=== PATIENT | male | born 1985 | race Caucasian/White ===

== ENCOUNTER 2023-12-15 13:35 | Inpatient (IN) | payer MEDICARE, OTHER ==
[~2023-12-15] VITALS: Ht 167.6 cm; Wt 98.0 kg
[2023-12-15] MEDS ORDERED: HALOPERIDOL LACTATE 5 MG/ML VIAL IM ONE (14:30)
[2023-12-15 14:44] LABS: BASOPHILS % (AUTO) 0.5 % (0.0-2.0); EOSINOPHILS % (AUTO) 0.9 % (1.0-6.0); HEMATOCRIT 46.9 % (41-53); HEMOGLOBIN 15.7 g/dL (13.5-17.5); LYMPHOCYTES # (AUTO) 1.3 K/uL (1.0-4.8); LYMPHOCYTES % (AUTO) 11.2 % (22.0-44.0); MEAN CORPUSCULAR HEMOGLOBIN 27.9 pg (26.0-34.0); MEAN CORPUSCULAR HGB CONC 33.4 G/dL (31.0-37.0); MEAN CORPUSCULAR VOLUME 84 fL (80-100); MONOCYTES # (AUTO) 0.4 K/uL (0.1-1.0); MONOCYTES % (AUTO) 3.5 % (2.0-9.0); NEUTROPHILS % (AUTO) 83.9 % (40.0-70.0); PLATELET COUNT (AUTO) 296 K/uL (150-450); RED BLOOD CELL COUNT(AUTO) 5.61 MIL/uL (4.50-5.90); RED CELL DISTRIBUTION WIDTH 14.1 % (11.5-14.5); WHITE BLOOD COUNT (AUTO) 11.9 K/uL (4.5-11.0)
[2023-12-15] MEDS ORDERED: ZOLPIDEM TARTRATE 10 MG TABLET PO PRN (14:45)
[2023-12-15 14:55] LABS: ANION GAP 13 mmol/L (8-16); CALCIUM, TOTAL 8.9 mg/dL (8.8-10.5); CARBON DIOXIDE 24 mmol/L (22-29); CHLORIDE 105 mmol/L (98-107); CREATININE 0.91 mg/dL (0.60-1.30); GLOMERULAR FILTR. RATE CALC > 60 mL/min (>60); GLUCOSE,RANDOM 102 mg/dL (70-110); POTASSIUM 3.7 mmol/L (3.5-5.1); SODIUM SERUM 142 mmol/L (136-145); UREA NITROGEN, BLOOD 9 mg/dL (7-18)
[2023-12-15 14:57] LABS: ALCOHOL, BLOOD (SERUM) 122 mg/dL (0-10)
[2023-12-15] MEDS: HALOPERIDOL LACTATE 5 MG/ML VIAL IM ONE (15:07)
[2023-12-15] MEDS: LORazepam 2 MG/ML VIAL IM ONE (15:08)
[2023-12-15] MEDS: DiphenhydrAMINE HCL 50 MG/ML VIAL IM ONE (15:08)
[2023-12-15 15:14] LABS: APPEARANCE,URINE CLEAR (CLEAR); BILIRUBIN,URINE NEGATIVE (NEGATIVE); COLOR,URINE LIGHT YELLOW (YELLOW); GLUCOSE, URINE (UA) NEGATIVE (NEGATIVE); KETONES,URINE NEGATIVE (NEGATIVE); LEUKOCYTE ESTERASE ,URINE NEGATIVE (NEGATIVE); NITRATE,URINE NEGATIVE (NEGATIVE); OCCULT BLOOD,URINE NEGATIVE (NEGATIVE); PH,URINE 6.5 (5.0-8.0); PROTEIN,URINE 30-70 mg/dL (NEGATIVE); SPECIFIC GRAVITIY, URINE 1.011 (1.003-1.030); UROBILINOGEN,URINE <=1.0 mg/dL (<=1.0)
[2023-12-15 15:19] LABS: PH,URINE DRUG SCREEN 6.5 (5.0-8.0)
[2023-12-15 15:23] LABS: ALCOHOL, URINE DRUG SCREEN POSITIVE (NEGATIVE); AMPHET/METH SCREEN,URINE NEGATIVE (NEGATIVE); BARBITURATE SCREEN, URINE NEGATIVE (NEGATIVE); BENZODIAZEPINES SCREEN,URINE NEGATIVE (NEGATIVE); CANNABINOID SCREEN,URINE POSITIVE (NEGATIVE); COCAINE SCREEN,URINE NEGATIVE (NEGATIVE); METHADONE SCREEN, URINE NEGATIVE (NEGATIVE); OPIATE SCREEN,URINE NEGATIVE (NEGATIVE); PHENCYCLIDINE SCREEN,URINE NEGATIVE (NEGATIVE)
[2023-12-15] MEDS ORDERED: KETAMINE HCL 50 MG/ML 10 ML VIAL ONE (15:23)
[2023-12-15] MEDS: KETAMINE HCL 50 MG/ML 10 ML VIAL IM ONE (15:30)
[2023-12-15 16:56] LABS: COVID AG,FIA SOURCE NASAL SWAB
[2023-12-15 17:20] LABS: SARS-COV2 (COVID) ANTIGEN,FIA Negative (Negative)
[2023-12-15 18:07] VITALS: O2SAT 98
[2023-12-15 20:34] VITALS: BP 126/78; PULSE 90; RESP 16; TEMP 97.1; O2SAT 98
[2023-12-16 08:16] VITALS: BP 114/70; PULSE 73; RESP 16; TEMP 97.1; O2SAT 97
[2023-12-16] MEDS ORDERED: PETROLATUM,WHITE 28 GM JELLY TP PRN (11:00)
[2023-12-16] MEDS ORDERED: CloNIDine HCL 0.1 MG TABLET PO PRN (11:00)
[2023-12-16] MEDS ORDERED: LOPERAMIDE HCL 2 MG CAPSULE PO PRN (11:00)
[2023-12-16] MEDS ORDERED: MAG HYDROX/ALUMINUM HYD/SIMETH ES 30 ML SUSPENSION UDCUP PO PRN (11:00)
[2023-12-16] MEDS ORDERED: DOCUSATE SODIUM 100 MG CAPSULE PO PRN (11:00)
[2023-12-16] MEDS ORDERED: IBUPROFEN 600 MG TABLET PO PRN (11:00)
[2023-12-16] MEDS ORDERED: MAGNESIUM HYDROXIDE SUSPENSION 30 ML UDCUP PO PRN (11:00)
[2023-12-16] MEDS ORDERED: ACETAMINOPHEN 325 MG TABLET PO PRN (11:00)
[2023-12-16] MEDS ORDERED: OMEPRAZOLE 20 MG CAPSULE PO PRN (11:00)
[2023-12-16] MEDS ORDERED: BACITRACIN 28 GM OINTMENT TP PRN (11:00)
[2023-12-16] MEDS ORDERED: ALBUTEROL SULFATE HFA 90 MCG/PUFF 8 GM INHALER IH PRN (11:00)
[2023-12-16] MEDS ORDERED: ONDANSETRON 4 MG TABLET PO PRN (11:00)
[2023-12-16] MEDS ORDERED: BENZOCAINE/MENTHOL LOZENGE PO PRN (11:00)
[2023-12-16] MEDS: LORazepam 2 MG TABLET PO PRN (16:03)
[2023-12-16] MEDS: HALOPERIDOL 5 MG TABLET PO PRN (16:03)
[2023-12-16 20:57] VITALS: RESP 18; TEMP 97.8
[2023-12-17 08:11] VITALS: BP 117/83; PULSE 91; RESP 18; TEMP 97.5; O2SAT 96
[2023-12-17] MEDS: DIVALPROEX SODIUM 500 MG DR TABLET PO SCH (08:14)
[2023-12-17] MEDS: LITHIUM CARBONATE 300 MG CAPSULE PO SCH (08:14)
[2023-12-17] MEDS: RisperiDONE 3 MG TABLET PO SCH (08:14)
[2023-12-17 20:05] VITALS: BP 138/65; PULSE 100; RESP 18; TEMP 98.3; O2SAT 97
[2023-12-18 06:36] VITALS: BP 124/74; PULSE 93; RESP 18; TEMP 97.3; O2SAT 98
[2023-12-18 08:13] VITALS: BP 118/75; PULSE 95; RESP 18; TEMP 98.4; O2SAT 97
[2023-12-18] MEDS ORDERED: RISP3TAB77 PO (12:54)
[2023-12-18] MEDS ORDERED: LITH300C3 PO (12:55)
[2023-12-18] MEDS ORDERED: DIVA-112 PO (12:55)
== END 2023-12-18 15:51 | disposition home or self-care (01) | DRG 885 ==
LOC: EMS 13:35 → B2X 19:09
PROVIDERS: ADMIT Psychiatry & Neurology Psychiatry; ATTEND Psychiatry & Neurology Psychiatry
DX: F31.9 Bipolar disorder, unspecified (principal); F41.9 Anxiety disorder, unspecified; F12.90 Cannabis use, unspecified, uncomplicated; G47.00 Insomnia, unspecified; K59.00 Constipation, unspecified; Z20.822 Contact with and (suspected) exposure to COVID-19; E66.9 Obesity, unspecified; F10.129 Alcohol abuse with intoxication, unspecified; F43.10 Post-traumatic stress disorder, unspecified; R45.850 Homicidal ideations; Y90.6 Blood alcohol level of 120-199 mg/100 ml; Z88.0 Allergy status to penicillin; Z68.34 Body mass index [BMI] 34.0-34.9, adult; Z78.1 Physical restraint status
CPT/HCPCS: 80048; 80307; 81003; 85025; 99291; G0480; J1200; J1630; J2060; J3490